=== PATIENT | female | born 1945 | race American Indian/Alaskan Native ===

== ENCOUNTER 2018-10-12 06:15 | Day surgery (SDC) | payer MEDICARE, OTHER ==
[2018-10-12] MEDS ORDERED: NACL 0.9% 1000 ML 1,000 ML IV SCH (07:00)
[2018-10-12] MEDS ORDERED: WATER FOR IRRIG STERILE IR ONE (07:42)
[2018-10-12] MEDS ORDERED: DIPRIVAN 10 MG/ML IV ONE ×2 (08:01→08:02)
--- NOTE | 2018-10-12 08:19 | Anesthesia Consultation ---
Anesthesia Consult and Med Hx Date of service: 10/12/18 - Airway Anesthetic Teeth Evaluation: Dentures, Edentulous ROM Head & Neck: Adequate Mental/Hyoid Distance: Adequate Mallampati Class: Class III Intubation Access Assessment: Possibly Difficult - Pulmonary Exam CTA: Yes - Cardiac Exam Cardiac Exam: RRR (grade 3/6 systolic murmur) - Pre-Operative Health Status ASA Pre-Surgery Classification: ASA3 Proposed Anesthetic Plan: MAC - Pulmonary Hx Smoking: No Hx Respiratory Symptoms: No SOB: Yes (EXERTIONAL) Home Oxygen Therapy: No Hx Sleep Apnea: Yes (compliant with CPAP) - Cardiovascular System Hx Hypertension: Yes Hx Coronary Artery Disease: Yes Hx Heart Attack/AMI: Yes Hx Percutaneous Transluminal Coronary Angioplasty (PTCA): Yes (2014) Hx Cardia Arrhythmia: No Hx Pacemaker: No Hx Internal Defibrillator: No Hx Valvular Heart Disease: Yes (moderate ) Hx Heart Murmur: Yes - Central Nervous System CVA: No - Gastrointestinal Hx Gastroesophageal Reflux Disease: Yes (controlled) - Endocrine Hx Renal Disease: No Hx Liver Disease: No Hx Insulin Dependent Diabetes: No Hx Non-Insulin Dependent Diabetes: No Hx Thyroid Disease: No - Hematic Hx Anemia: Yes - Other Systems Hx Obesity: Yes (BMI 40) - Additional Comments Anesthesia Medical History Comments: PMH diastolic CHF normal EF in 02/2018. No reversible defects on most recent nuc stress test. No evidence of acute decompensation.
--- NOTE | 2018-10-12 08:19 | Anesthesia Day of Surgery ---
Anesthesia Day of Surgery - Day of Surgery Patient Examined: Yes Patient H&P Reviewed: Yes Patient is NPO: Yes Beta Blockers: Yes (last dose 10/11/18) Cardiac Clearance: Yes (on paper chart)
--- NOTE | 2018-10-12 09:03 | Short Stay Summary ---
Short Stay Documentation - Allergies and Medications Current Medications: Allergies codeine Allergy (Intermediate, Verified 10/11/18 13:12) Unknown adhesive tape Allergy (Mild, Verified 10/11/18 13:12) Unknown latex Allergy (Mild, Verified 10/11/18 13:12) Unknown Home Medications Medication Instructions Recorded Confirmed Last Taken Type Aspirin BABY CHEW TAB 81 mg PO DAILY 10/11/18 10/11/18 Unknown History Atorvastatin 40 mg PO DAILY 10/11/18 10/12/18 10/12/18 History Dymista Nasal Chapman 1 spray INTRANASAL BID 10/11/18 10/11/18 Unknown History Gabapentin 300 mg PO DAILY 10/11/18 10/11/18 Unknown History Integra Plus Capsule 1 cap PO DAILY 10/11/18 10/12/18 10/11/18 History Klor-Con M20 20 meq PO BID 10/11/18 10/12/18 10/12/18 History Lasix 80 mg PO DAILY 10/11/18 10/12/18 10/11/18 History Lisinopril 10 mg PO DAILY 10/11/18 10/12/18 10/11/18 History Metoprolol 25 mg PO DAILY 10/11/18 10/12/18 10/11/18 History Omeprazole 40 mg PO DAILY 10/11/18 10/12/18 10/11/18 History Plavix 75 mg PO DAILY 10/11/18 10/12/18 10/06/18 History Ranexa 500 mg PO BID 10/11/18 10/12/18 10/12/18 History Timolol 0.5% 1 drop OU BID 10/11/18 10/12/18 10/11/18 History Active Medications Sodium Chloride (Nacl 0.9% 1000 Ml) 1,000 mls @ 50 mls/hr IV DIRECT ASHLEY Last Admin: 10/12/18 07:51 Dose: 50 mls/hr Documented by: - Brief post op/procedure progress note Date of procedure: 10/12/18 Pre-op diagnosis: 1. Anemia 2. Colon cancer screening Post-op diagnosis: same (EGD: 1. GERD 2. Gastritis 3. Duodenitis Colonoscopy : 1. Diverticulosis 2. Rectal polyp 3. Internal hemorrhoids) Procedure: 1. EGD with biopsy 2. Colonoscopy with cold biopsy polypectomy Anesthesia: MAC Findings: as above Surgeon: VIANNEY YAP Estimated blood loss: none Pathology: list (1. 2nd duodenum 2, Antrum 3. Rectal polyp) Specimen disposition: to lab Condition: stable - Disposition Condition at discharge: Stable Disposition: TO HOME OR SELFCARE Short Stay Discharge Plan Activity: no restrictions Weight Bearing Status: Full Weight Bearing Diet: regular, low salt Additional Instructions: Post Sedation D/C Instructions When you return home you may resume your regular diet unless otherwise directed. -Go directly home from the hospital and rest quietly. You may resume normal activities tomorrow. -Do NOT drive, return to work, operate any machinery or make any important personal or business decisions today. -Do NOT drink any alcohol or take nerve or sleeping drugs. They add to the effects of the medicine still present in your body. FOLLOW [facility] INSTRUCTIONS WHEN TO CONTINUE [facility] CALL OFFICE TO FOLLOW UP WITH TODAY'S VISIT AND BIOPSY RESULTS Follow up with: PHANI DAVIS MD [Primary Care Provider] - 7 Days
[2018-10-12 09:39] VITALS: BP 153/60
== END 2018-10-12 06:16 | disposition home or self-care (01) ==
LOC: GIO 06:15 → EDSEX 08:30
PROVIDERS: ATTEND Internal Medicine Gastroenterology
DX: K29.50 Unspecified chronic gastritis without bleeding (principal); K62.1 Rectal polyp; K64.8 Other hemorrhoids; D50.9 Iron deficiency anemia, unspecified; K57.30 Diverticulosis of large intestine without perforation or abscess without bleeding; K64.1 Second degree hemorrhoids; K21.9 Gastro-esophageal reflux disease without esophagitis; K29.80 Duodenitis without bleeding; I11.0 Hypertensive heart disease with heart failure; I50.9 Heart failure, unspecified; I25.10 Atherosclerotic heart disease of native coronary artery without angina pectoris; E78.00 Pure hypercholesterolemia, unspecified; E66.9 Obesity, unspecified; Z68.41 Body mass index [BMI] 40.0-44.9, adult; Z90.710 Acquired absence of both cervix and uterus; Z91.040 Latex allergy status; Z88.5 Allergy status to narcotic agent; Z79.899 Other long term (current) drug therapy; Z79.82 Long term (current) use of aspirin; Z98.890 Other specified postprocedural states
CPT/HCPCS: 43239; 45380; 88305; 88342; J2704; J7030